=== PATIENT | male | born 1980 | race Caucasian/White ===

== ENCOUNTER 2016-08-23 11:38 | Emergency (ER) | payer MEDICAID ==
[2016-08-23] MEDS ORDERED: KETOROLAC 30 MG/ML VIAL ONE (14:05)
[2016-08-23] MEDS ORDERED: DIPHENHYDRAMINE 50 MG/ML VIAL ONE (14:05)
[2016-08-23] MEDS ORDERED: METOCLOPRAMIDE 10 MG/2 ML VIAL ONE (14:05)
== END 2016-08-23 15:09 | disposition home or self-care (01) ==
LOC: ER 11:38
DX: R51 Headache (principal); S16.1XXA Strain of muscle, fascia and tendon at neck level, initial encounter; M47.892 Other spondylosis, cervical region
CPT/HCPCS: 36415; 70360; 80053; 85025; 85652; 96374; 96375